=== PATIENT | female | born 1990 | race Caucasian/White ===

== ENCOUNTER 2017-04-20 16:13 | Emergency (ER) | payer BC ==
[2017-04-20 16:33] VITALS: BP 124/86
--- NOTE | 2017-04-20 16:53 | UC ---
Respiratory Complaint HPI - HPI Summary HPI Summary: 26 yo female with cough x 4-5 days no fever or chills productive at times SOB at times - History of Current Complaint Chief Complaint: UCRespiratory Stated Complaint: COUGH,DIFFICULTY BREATHING Time Seen by Provider: 04/20/17 16:45 Hx Obtained From: Patient Hx Last Menstrual Period: 04/20/17 Onset/Duration: Gradual Onset, Lasting Days Timing: Constant Severity Initially: Moderate Severity Currently: Moderate Pain Intensity: 2 Pain Scale Used: 0-10 Numeric Character: Cough: Productive Aggravating Factors: Nothing Alleviating Factors: Nothing Associated Signs And Symptoms: Positive: Dyspnea - at times - Allergies/Home Medications Allergies/Adverse Reactions: Allergies Allergy/AdvReac Type Severity Reaction Status Date / Time Bupropion [From Wellbutrin] Allergy Hives Verified 04/20/17 16:26 Lidocaine Allergy Tingling Verified 04/20/17 16:26 Prednisone Allergy See Comment Verified 04/20/17 16:26 PET DANDER, POLLEN Allergy STUFFY Uncoded 04/20/17 16:26 Home Medications: Home Medications Sertraline* [Zoloft*] 1 tab DAILY 04/20/17 [History Confirmed 04/20/17] PMH/Surg Hx/FS Hx/Imm Hx Previously Healthy: Yes Respiratory History: Asthma, Bronchitis, Pneumonia - Surgical History Surgical History: Yes Surgery Procedure, Year, and Place: 2011 WISDOM TEETH EXTRACTION, OFFICE. TONSILS - Family History Known Family History: Positive: Cardiac Disease, Hypertension, Diabetes, Other - Myasthenia Gravis GM - Social History Alcohol Use: Rare Substance Use Type: None Smoking Status (MU): Light Every Day Tobacco Smoker Type: Cigarettes Amount Used/How Often: 3-4 CIGS/DAY Have You Smoked in the Last Year: Yes - Immunization History Most Recent Influenza Vaccination: NOT YET 2017 Review of Systems Constitutional: Negative Skin: Negative Eyes: Negative ENT: Negative Respiratory: Cough Cardiovascular: Negative Gastrointestinal: Negative Genitourinary: Negative Motor: Negative Neurovascular: Negative Musculoskeletal: Negative Neurological: Negative Psychological: Negative Is Patient Immunocompromised?: No All Other Systems Reviewed And Are Negative: Yes Physical Exam Triage Information Reviewed: Yes Appearance: Well-Appearing, No Pain Distress, Well-Nourished Vital Signs: Initial Vital Signs Temp 98.1 F 04/20/17 16:27 Pulse 76 04/20/17 16:27 Resp 16 04/20/17 16:27 BP 124/86 04/20/17 16:27 Pulse Ox 100 04/20/17 16:27 Vital Signs Reviewed: Yes Eyes: Positive: Conjunctiva Clear ENT: Positive: Hearing grossly normal, Pharynx normal, TMs normal. Negative: Nasal congestion, Nasal drainage, Tonsillar swelling, Tonsillar exudate, Trismus , Muffled/hoarse voice Dental Exam: Normal Neck: Positive: Supple, Nontender, No Lymphadenopathy Respiratory: Positive: Lungs clear, Normal breath sounds, No respiratory distress, No accessory muscle use, Rhonchi - with forced expiration Cardiovascular: Positive: RRR, No Murmur Musculoskeletal: Positive: ROM Intact, No Edema Neurological: Positive: Alert Psychological Exam: Normal Skin Exam: Normal UC Diagnostic Evaluation - Laboratory O2 Sat by Pulse Oximetry: 100 - normal/not hypoxic Respiratory Course/Dx - Differential Dx/Diagnosis Provider Diagnoses: acute bronchitis Discharge - Discharge Plan Condition: Stable Disposition: HOME Prescriptions: Amoxicillin PO (*) [Amoxicillin 875 MG (*)] 875 mg PO BID #14 tab Benzonatate CAP* [Tessalon CAP*] 100 - 200 mg PO TID PRN #28 cap PRN Reason: Cough Patient Education Materials: Acute Bronchitis (ED) Forms: *Work Release Referrals: Eleazar Garcia MD [Primary Care Provider] - If Needed Additional Instructions: recheck for new or worsening symptoms recheck if not better in 4 days or so mucinex or robitussin
== END 2017-04-20 17:05 | disposition home or self-care (01) ==
LOC: UCCORT 16:13
DX: J20.9 Acute bronchitis, unspecified (principal); J30.1 Allergic rhinitis due to pollen; J30.81 Allergic rhinitis due to animal (cat) (dog) hair and dander; F17.210 Nicotine dependence, cigarettes, uncomplicated; Z88.8 Allergy status to other drugs, medicaments and biological substances
CPT/HCPCS: 99212; G0463

== ENCOUNTER 2017-07-21 10:11 | Emergency (ER) | payer BC ==
[2017-07-21 10:47] VITALS: BP 130/85
--- NOTE | 2017-07-21 11:10 | UC ---
Respiratory Complaint HPI - HPI Summary HPI Summary: Pt presents with 8 days cough productive of yellow sputum with wheeze. pt has been taking albuterol with mild relief. Pt reports fatigue. No nausea,vomiting. Mild sinus congestion. No martin, vision changes.. + ear fullness + sick contacts Pt reports mild chest discomfort with coughing only. Little relieft with OTC meds Pt's medications reviewed this visit - History of Current Complaint Chief Complaint: UCRespiratory Stated Complaint: UPPER RESP Time Seen by Provider: 07/21/17 11:06 Hx Obtained From: Patient Hx Last Menstrual Period: end june Onset/Duration: Gradual Onset Timing: Constant Severity Initially: Mild Severity Currently: Moderate - Allergies/Home Medications Allergies/Adverse Reactions: Allergies Allergy/AdvReac Type Severity Reaction Status Date / Time Bupropion [From Wellbutrin] Allergy Hives Verified 07/21/17 10:47 Lidocaine Allergy Tingling Verified 07/21/17 10:47 Prednisone Allergy See Comment Verified 07/21/17 10:47 PET DANDER, POLLEN Allergy STUFFY Uncoded 07/21/17 10:47 Home Medications: Home Medications Dextromethorphan-Phenylephrine [Vicks Dayquil Cold & Flu] 2 cap PO BID PRN 07/21 [History Confirmed 07/21/17] PMH/Surg Hx/FS Hx/Imm Hx Previously Healthy: Yes Respiratory History: Asthma - Surgical History Surgical History: Yes Surgery Procedure, Year, and Place: 2011 WISDOM TEETH EXTRACTION, OFFICE. TONSILS - Family History Known Family History: Positive: Cardiac Disease, Hypertension, Diabetes, Other - Myasthenia Gravis GM - Social History Occupation: Employed Full-time Lives: With Family Alcohol Use: Rare Substance Use Type: None Smoking Status (MU): Light Every Day Tobacco Smoker Type: Cigarettes Amount Used/How Often: 3-4 CIGS/DAY Have You Smoked in the Last Year: Yes - Immunization History Most Recent Influenza Vaccination: NOT YET 2017 Review of Systems Constitutional: Negative ENT: Nasal Discharge, Sinus Congestion Respiratory: Shortness Of Breath, Cough All Other Systems Reviewed And Are Negative: Yes Physical Exam Triage Information Reviewed: Yes Appearance: Well-Appearing, No Pain Distress, Well-Nourished Vital Signs: Initial Vital Signs Temp 99 F 07/21/17 10:41 Pulse 81 07/21/17 10:41 Resp 12 07/21/17 10:41 BP 130/85 07/21/17 10:41 Pulse Ox 100 07/21/17 10:41 Vital Signs Reviewed: Yes Eye Exam: Normal Eyes: Positive: Conjunctiva Clear ENT: Positive: Hearing grossly normal, Pharynx normal, Pharyngeal erythema, Nasal congestion, TMs normal, Uvula midline Dental Exam: Normal Neck exam: Normal Neck: Positive: Supple, Nontender, No Lymphadenopathy Respiratory Exam: Normal Respiratory: Positive: Chest non-tender, No respiratory distress, No accessory muscle use - few scattered wheeze no accessory muscles, Wheezing Cardiovascular Exam: Normal Cardiovascular: Positive: RRR, No Murmur Abdominal Exam: Normal Abdomen Description: Positive: Nontender, No Organomegaly Bowel Sounds: Positive: Present Musculoskeletal Exam: Normal Neurological Exam: Normal Neurological: Positive: Alert Psychological Exam: Normal Skin Exam: Normal UC Diagnostic Evaluation - Laboratory O2 Sat by Pulse Oximetry: 100 Respiratory Course/Dx - Course Course Of Treatment: Pt with scattered wheeze, cough. influenza neg. Rx abx MDI refill. hydrate. secretion precaution. work note - Differential Dx/Diagnosis Provider Diagnoses: acute bronchitis Discharge - Discharge Plan Condition: Stable Disposition: HOME Prescriptions: Albuterol HFA INHALER* [Ventolin HFA Inhaler*] 1 puff INH Q4H PRN #1 mdi PRN Reason: wheeze Amoxicillin/Clavulanate TAB* [Augmentin TAB 875*] 875 mg PO BID #20 tab Patient Education Materials: Acute Bronchitis (ED) Forms: *Work Release Referrals: Eleazar Garcia MD [Primary Care Provider] - Additional Instructions: - Take antibiotics as prescribed until gone - Use inhaler, 2 puffs every 4 hours, today and tomorrow and then as needed. Use the spacer with your inhaler - These infections are spread by oral secretions - do not share eating or drinking utensils until you symptoms are resolved. Clean items that may get your secretions such as cell phones, ipads, computer mouse, television remote. Once you have been on antbiotics for 2 days, change your pillowcase and your toothbrush - Contact your doctor or go tot the emergency department with questions or concerns - Get plenty of restful sleep - contact your doctor or return with questions or concerns
== END 2017-07-21 12:08 | disposition home or self-care (01) ==
LOC: UCCORT 10:11
DX: J20.9 Acute bronchitis, unspecified (principal); J45.909 Unspecified asthma, uncomplicated; Z88.4 Allergy status to anesthetic agent; Z88.8 Allergy status to other drugs, medicaments and biological substances; F17.210 Nicotine dependence, cigarettes, uncomplicated
CPT/HCPCS: 87502; 99212; G0463

== ENCOUNTER 2017-10-14 20:13 | Emergency (ER) | payer BC ==
[2017-10-14 20:39] VITALS: BP 131/91
[2017-10-14] MEDS ORDERED: Ibuprofen TAB* 600 MG PO ONE (20:58)
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
--- NOTE | 2017-10-14 21:25 | RAD ---
Indication: Anterior and lateral LEFT shoulder pain worsening with movement following injury. Comparison: None. Technique: AP and cephalad oblique views LEFT clavicle. Internal rotation AP, external rotation Grashey, scapular Y, axillary views LEFT shoulder Report: Normal sternoclavicular, acromioclavicular, and glenohumeral joint alignment. Negative for fracture at the clavicle or about the shoulder. Unremarkable soft tissue contours. IMPRESSION: Negative radiographic exam of the LEFT clavicle and shoulder.
== END 2017-10-14 21:57 | disposition home or self-care (01) ==
LOC: UCCORT 20:13
DX: S46.002A Unspecified injury of muscle(s) and tendon(s) of the rotator cuff of left shoulder, initial encounter (principal); X58.XXXA Exposure to other specified factors, initial encounter; Y93.75 Activity, martial arts; Y92.9 Unspecified place or not applicable; F17.210 Nicotine dependence, cigarettes, uncomplicated; Z88.8 Allergy status to other drugs, medicaments and biological substances; Z88.4 Allergy status to anesthetic agent
CPT/HCPCS: 99212; A9270-GY; G0463

== ENCOUNTER 2018-09-26 21:13 | Emergency (ER) | payer MEDICAID, OTHER ==
[2018-09-26 21:43] VITALS: BP 146/86
[2018-09-26] MEDS ORDERED: Fluorescein Sodium TOPICAL* 1 MG TEST STRIP OPHTHALMIC ONE (21:54)
[2018-09-26] MEDS ORDERED: Erythromycin OPTH OINT* APPLIC OINT RIGHT EYE ONE (22:07)
--- NOTE | 2018-09-26 22:07 | ED ---
Throat Pain/Nasal Congestion - HPI Summary HPI Summary: 27 yr old female with the complaint of tree branch to the lateral right eye when walking dog. She states her vision is not blurred, and it seems normal for her. She has irritation in the lateral eye. She states she pulled the twig out of the lateral eyelid area. She has allergies to lidocaine. - History of Current Complaint Chief Complaint: UCEye Time Seen by Provider: 09/26/18 21:54 - Allergies/Home Medications Allergies/Adverse Reactions: Allergies Allergy/AdvReac Type Severity Reaction Status Date / Time bupropion Allergy Hives Verified 09/26/18 21:40 lidocaine Allergy Tingling Verified 09/26/18 21:40 prednisone Allergy See Comment Verified 09/26/18 21:40 PET DANDER, POLLEN Allergy STUFFY Uncoded 09/26/18 21:40 PMH/Surg Hx/FS Hx/Imm Hx Respiratory History: Denies: Hx Asthma - STATES NO ASTHMA AT THIS TIME. Sensory History: Denies: Hx Contacts or Glasses, Hx Hearing Aid Opthamlomology History: Denies: Hx Contacts or Glasses Neurological History: Reports: Hx Headaches - 2-3 TIMES A WEEK Psychiatric History: Reports: Hx Depression - NO MEDS - Surgical History Surgery Procedure, Year, and Place: 2011 WISDOM TEETH EXTRACTION, OFFICE. TONSILS Hx Anesthesia Reactions: No Infectious Disease History: No Infectious Disease History: Denies: Traveled Outside the [place] in Last 30 Days - Family History Known Family History: Positive: Cardiac Disease, Hypertension, Diabetes, Other - Myasthenia Gravis GM - Social History Occupation: Employed Full-time, Student Lives: With Family Alcohol Use: Rare Substance Use Type: Reports: None Smoking Status (MU): Light Every Day Tobacco Smoker Type: Cigarettes Amount Used/How Often: 2 CIGS/DAY Length of Time of Smoking/Using Tobacco: 5-6 YRS. Have You Smoked in the Last Year: Yes Review of Systems Constitutional: Negative Negative: Photophobia, Blurred Vision, Diplopia, Drainage All Other Systems Reviewed And Are Negative: Yes Physical Exam Triage Information Reviewed: Yes Vital Signs On Initial Exam: Initial Vitals Temp Pulse Resp BP Pulse Ox 97.8 F 100 20 146/86 100 09/26/18 21:41 09/26/18 21:41 09/26/18 21:41 09/26/18 21:41 09/26/18 21:41 Vital Signs Reviewed: Yes Appearance: Positive: Well-Appearing, No Pain Distress Skin: Positive: Warm, Skin Color Reflects Adequate Perfusion Eyes: Positive: EOMI, RODRIGO, Other: - under wood lamp and flouro stain the cornea appears clear of abrasion. she does have abrasion that is linear at the 7 oclock position on the scleara. No FB seen. Eyelid lids examined and no FB under the lids. Eyelids with out bruising or swelling. Neck: Positive: Nontender Respiratory/Lung Sounds: Positive: Clear to Auscultation, Breath Sounds Present Cardiovascular: Positive: RRR. Negative: Murmur Abdomen Description: Negative: Nontender Musculoskeletal: Positive: Strength/ROM Intact Neurological: Positive: Sensory/Motor Intact, Alert, Oriented to Person Place, Time, CN Intact II-III Psychiatric: Positive: Normal - [place] Coma Scale Best Eye Response: 4 - Spontaneous Best Motor Response: 6 - Obeys Commands Best Verbal Response: 5 - Oriented Coma Scale Total: 15 Diagnostics - Vital Signs Vital Signs Temp Pulse Resp BP Pulse Ox 09/26/18 21:41 97.8 F 100 20 146/86 100 - Laboratory Lab Statement: Any lab studies that have been ordered have been reviewed, and results considered in the medical decision making process. EENT Course/Dx - Course Course Of Treatment: 27 yr old with abrasion to her right sclera. Will give her script for sulfa drops, and i'm updating her Boostrix. - Diagnoses Provider Diagnoses: Abrasion of sclera of right eye, Hypertension Discharge - Sign-Out/Discharge Documenting (check all that apply): Patient Departure All imaging exams completed and their final reports reviewed: No Studies - Discharge Plan Condition: Good Disposition: HOME Prescriptions: Sulfacetamide 10 % OPTH.GERALD* [Sulamyd 10% Opth*] 1 drop RIGHT EYE Q4H #1 btl Patient Education Materials: Corneal Abrasion (ED), Hypertension (ED) Referrals: Katie Rodriguez MD [Medical Doctor] - 1 Day Eleazar Garcia MD [Primary Care Provider] - 3 Days Additional Instructions: Be sure to follow up with the clinical data specialist for reevaluation of the injury to your sclera tomorrow. You need to see your primary care doctor for a blood pressure recheck. - Billing Disposition and Condition Condition: GOOD Disposition: Home
[2018-09-26] MEDS ORDERED: Tetan/Diph/Pertus SYR(Tdap)* 0.5 ML SYR(BOOSTRIX) use SYR IM ONE (22:08)
== END 2018-09-26 22:20 | disposition home or self-care (01) ==
LOC: UCCORT 21:13
DX: S05.8X1A Other injuries of right eye and orbit, initial encounter (principal); F17.210 Nicotine dependence, cigarettes, uncomplicated; Z88.7 Allergy status to serum and vaccine; Z88.8 Allergy status to other drugs, medicaments and biological substances; Z91.09 Other allergy status, other than to drugs and biological substances; W22.8XXA Striking against or struck by other objects, initial encounter; Y93.K1 Activity, walking an animal; Y92.9 Unspecified place or not applicable
CPT/HCPCS: 90471; 90715; 99212; A9270-GY; G0463